=== PATIENT | female | born 1990 | race Hispanic/Latino ===

== ENCOUNTER 2023-12-03 11:38 | Emergency (ER) | payer SELFPAY ==
[2023-12-03 11:42] VITALS: BP 157/92
[2023-12-03] MEDS: DECADRON 10 MG PO (12:55)
[2023-12-03] MEDS: TORADOL 30 MG IM (12:55)
[2023-12-03] MEDS: PEN VK 500 MG PO (12:55)
[2023-12-03 13:58] LABS: HCG, Serum Qualitative Screen Negative
--- NOTE | 2023-12-03 14:05 | ED.GENMED ---
History of Present Illness
General
Chief Complaint: Throat Problem
Source: patient
Exam Limitations: none
Time Seen by Provider: 12/03/23 11:58
Nursing documentation reviewed up to this point in time: agreed with
Travel History
Have you had any contact with someone who has COVID-19?: No
Do you have any symptoms of coronavirus? Fever > 100 degrees, chills, cough, shortness of breath, sore throat, loss of taste or smell, muscle aches, or headache?: Yes
Symptoms:: fever
History of Present Illness
History of Present Illness:
33F otherwise healthy, presenting to the Er with concerns of throat pain for the past 24 hours. Also has had subjective fever and swollen lymph nodes on the lateral neck. She has had been tolerating by mouth/secretions and fluids. No cough.
Review of Systems
Review of Systems
Allergies reviewed?: Yes
All Other Systems: ROS reviewed and negative except as documented in HPI and ROS
Phy Exam
Physical Exam
Physical Exam:
GENERAL: Alert , in no apparent distress
EYE: pupils equal and reactive
NECK: Supple, no significant adenopathy.
ENT: o/p clr, mmm.
CARDIAC: Regular rate and rhythm .
LUNGS: Clear breath sounds bilaterally, no acute respiratory distress, no wheezes/rales/rhonchi
ABDOMEN: Soft, without focal tenderness, no r/g, no cvat
NEUROLOGICAL: Alert and oriented, no focal neuro deficits
SKIN: Warm and dry, skin intact.
MUSCULOSKELETAL: No edema, well perfused.
PSYCH: Normal and appropriate interaction.
Exudative tonsils bilaterally uvula midline grossly patent airway anterior cervical lymphadenopathy.
Course
Orders/Labs/Results
Orders:
Orders
12/03/23 12:36
Test Result ONCE
12/03/23 12:37
Dexamethasone [Decadron] 10 mg PO NOW STA
Ketorolac [Toradol] 30 mg IM NOW STA
Penicillin V Potassium [Pen Vk] 500 mg PO NOW STA
12/03/23 13:06
Test Result ONCE
12/03/23 13:10
HCG, Serum Qualitative Screen Urgent
Vital Signs
Initial and Last Documented VS:
Initial Vital Signs
Temp Pulse Resp BP Pulse Ox
98.3 F 118 18 157/92 99
12/03/23 11:42 12/03/23 11:42 12/03/23 11:42 12/03/23 11:42 12/03/23 11:42
Last Documented Vital Signs
Temp Pulse Resp BP Pulse Ox
98.3 F 118 18 157/92 99
12/03/23 11:42 12/03/23 11:42 12/03/23 11:42 12/03/23 11:42 12/03/23 11:42
MDM/Problems Addressed
MDM/Problems Addressed:
33-year-old female presenting to the emergency department today with concerns of sore throat. She has swollen exudative tonsils bilaterally grossly patent airway uvula midline. Patient in no distress tolerating secretions treated for likely strep
as she meets all [facility] criteria. Advised for outpatient follow-up return precautions given.
*Critical Care Note
Total Time (30-74mins, 75-104mins- exclusive of procedures): Not Applicable
ED Attending Note
-
Portions of this chart may have been created with voice recognition software.� Occasional wrong word or��sound alike� substitutions may have occurred due to the inherent limitations of voice recognition software.
Discharge Plan
Departure
Patient Disposition: Home (Routine Discharge)
Date of Disposition: 12/03/23
Time of Disposition: 14:05
Patient with high blood pressure during this ER visit?: No
Condition: Good
Covid-19: Not Applicable
Discharge Problem:
Strep throat
Instructions: Strep Throat (DC)
Prescriptions:
New
penicillin V potassium 500 mg tablet
500 mg PO TID 7 Days Qty: 21 0RF
ibuprofen 600 mg tablet
600 mg PO Q6H PRN (Reason: Pain) Qty: 20 0RF
Referrals:
NONE,* [Family Provider] -
Stand Alone Forms: Return to Work
Activity Restrictions/Additional Instructions:
You came to the emergency department today with concerns of sore throat. This appears consistent with strep throat. Please take penicillin 3 times daily for the next 7 days and also take ibuprofen for every 6 hours. Please stay hydrated return to
the emergency department for any worsening, new or concerning symptoms.
Interventions
Interventions:
*Risk Screen - Suicide Last Done: 12/03/23 11:43
*General Assessment Last Done: 12/03/23 11:43
*Neglect/Abuse Screening Last Done: 12/03/23 11:43
ED- Fall Risk Assessment Last Done: 12/03/23 13:24
*ED COVID-19 Vaccine History Last Done: 12/03/23 11:43
*Nursing Disposition Last Done: 12/03/23 14:27
ED-EENT Assessment Last Done: 12/03/23 13:23
ED- Pulmonary Assessment Last Done: 12/03/23 13:23
Discharge Date and Time
Discharge Date/Time: 12/03/23 14:28
Print Language: CITIZEN OF [place]
== END 2023-12-03 14:28 | disposition home or self-care (01) ==
LOC: EMR 11:38
PROVIDERS: Physician Assistant; EMERGENCY PHYSICIAN Emergency Medicine
DX: J02.0 Streptococcal pharyngitis (principal)
CPT/HCPCS: 99282; 96372; 84703

== ENCOUNTER 2024-02-26 15:04 | Emergency (ER) | payer OTHER, SELFPAY ==
[2024-02-26 15:32] VITALS: BP 110/79
[2024-02-26 16:54] VITALS: BP 112/67
--- NOTE | 2024-02-26 17:04 | ED.GENMED ---
History of Present Illness
General
Chief Complaint: Abdominal Symptoms
Source: patient
Exam Limitations: none
Time Seen by Provider: 02/26/24 16:24
Nursing documentation reviewed up to this point in time: agreed with
History of Present Illness
History of Present Illness:
Patient to ED with cmplaint of right sided abdominalpaiin. Pain started 8 days ago but was much worse this AM. Reports n/v/d. Denies fever/chills. Brought self to ED for eval.
Past History
Past History
ED Past Medical History: Other (polycystic ovaries)
ED Past Surgical History: None
Social History
Tobacco: Smoker (occasional)
Alcohol: Occasional
Drug: Marijuana (occasional)
Review of Systems
Review of Systems
Allergies reviewed?: Yes
All Other Systems: ROS reviewed and negative except as documented in HPI and ROS
Constitutional: Reports no symptoms
EENT: Reports no symptoms
Respiratory: Reports no symptoms
Cardiac: Reports no symptoms
ABD/GI: Reports abdominal pain (right sided)
: Reports no symptoms
Musculoskeletal: Reports no symptoms
Skin: Reports no symptoms
Neurological: Reports no symptoms
Psychiatric: Reports no symptoms
Phy Exam
General Physical Exam
General Presentation: well appearing
General age: appears stated age
General Skin: warm
General Habitus: normal
General Mental: alert
Cardiovascular Exam
Cardiovascular Exam: regular rate/rhythm and no edema
Pulmonary Exam
Pulmonary Exam: lungs clear and no respiratory distress
Gastrointestinal Exam
Gastrointestinal Exam: normal bowel sounds, soft, no organomegaly, non distended and no cva tenderness
Palpation: left upper quadrant: No tenderness, left lower quadrant: No tenderness, right upper quadrant: Moderate tenderness and right lower quadrant: Moderate tenderness
Musculoskeletal Exam
Musculoskeletal Exam: full ROM and neuro vasc intact
Skin Exam
Skin Exam: normal color, warm/dry and no rash
Psychiatric Exam
Psychiatric Exam: normal mood/affect
Course
Orders/Labs/Results
Orders:
Orders
02/26/24 15:33
Test Result ONCE
02/26/24 16:47
Complete Blood Count/With Diff Urgent
Comprehensive Metabolic Panel Urgent
HCG, Serum Qualitative Screen Urgent
Lipase Urgent
02/26/24 17:03
CT Abd/pel W Iv And Oral Contr Urgent
Comment:
Reason For Exam: RLQ pain
Iohexol [Omnipaque] See Protocol PO NOW STA
US Abdomen Complete/Upper Stat
Comment:
Reason For Exam: RUQ pain
02/26/24 17:40
0.9% Sodium Chloride 1000 ml [Nss] 1,000 ml IV BOLUS
Ketorolac [Toradol] 30 mg IV NOW STA
Ondansetron Injectable [Zofran] 4 mg IV NOW STA
02/26/24 19:31
Urinalysis Reflex To Culture Urgent
Date Specimen was Collected: 02/26/24
Time Specimen was Collected: 15:33
Urine Microscopic Reflex Cult Urgent
Urine Culture Urgent
LAILA Source: U
Specimen Description:
Date Specimen was Collected: 02/26/24
Time Specimen was Collected: 15:33
Abnormal Lab Results
02/26/24 02/26/24
16:47 19:31
RBC 5.54 H 10^6/uL
(4.20-5.40)
MCH 26.7 L pg
(27.0-31.0)
MCHC 32.9 L g/dL
(33.0-37.0)
Plt Count 401 H 10^3/uL
(130-400)
Creatinine 0.5 L mg/dL
(0.6-1.0)
Urine Ketones 3+ A
(Negative)
Ur Occult Blood Reflex Trace A
(Negative)
Leukocyte Esterase Rfl 1+ A
(Negative)
Urine RBC 3-6 A /HPF
(0-2)
Urine WBC (Reflex) 16-20 A /HPF
(0-5)
Urine Bacteria (Reflex) Few A
(Negative)
02/26/24 16:47
02/26/24 16:47
Vital Signs
Initial and Last Documented VS:
Initial Vital Signs
Temp Pulse Resp Pulse Ox
98.0 F 92 16 98
02/26/24 15:30 02/26/24 15:30 02/26/24 15:30 02/26/24 15:30
Last Documented Vital Signs
Temp Pulse Resp BP Pulse Ox
98.0 F 92 16 103/67 97
02/26/24 15:30 02/26/24 15:30 02/26/24 15:30 02/26/24 19:00 02/26/24 16:59
*Radiology
Radiology exam reviewed: radiology read reviewed
*Pulse Oximetry
Patient hypoxic: no
*Critical Care Note
Total Time (30-74mins, 75-104mins- exclusive of procedures): Not Applicable
ED Attending Note
-
Portions of this chart may have been created with voice recognition software.� Occasional wrong word or��sound alike� substitutions may have occurred due to the inherent limitations of voice recognition software.
Discharge Plan
Departure
Patient Disposition: Home (Routine Discharge)
Date of Disposition: 02/26/24
Time of Disposition: 20:52
Patient with high blood pressure during this ER visit?: No
Condition: Good
Covid-19: Not Applicable
Discharge Problem:
Abdominal pain
Instructions: Abdominal Pain
Prescriptions:
New
dicyclomine 20 mg tablet
20 mg PO QID PRN (Reason: abdominal cramping) Qty: 20 0RF
No Action
penicillin V potassium 500 mg tablet
500 mg PO TID 7 Days Qty: 21 0RF
ibuprofen 600 mg tablet
600 mg PO Q6H PRN (Reason: Pain) Qty: 20 0RF
Referrals:
Sruthi Hernandez MD [Active] - Call in 1-3 days for appt
NONE,* [Family Provider] -
Interventions
Interventions:
*Risk Screen - Suicide Last Done: 02/26/24 18:58
*General Assessment Last Done: 02/26/24 18:58
*Neglect/Abuse Screening Last Done: 02/26/24 18:58
*Nursing Disposition Last Done: 02/26/24 21:34
VE-Kdmqjy-Pkegqxdlou Assessment Last Done: 02/26/24 18:58
Discharge Date and Time
Discharge Date/Time: 02/26/24 21:43
Print Language: KHMER
[2024-02-26 17:05] LABS: % Basophils 0.5 % (0-2); % Eosinophils 1.9 % (0-6); % Immature Granulocytes 0.2 % (0-0.5); % Lymphocytes 27.8 % (20.5-51.1); % Monocytes 5.7 % (1.7-9.3); % Neutrophils 63.9 % (42.2-75.2); Absolute Basophils 0.1 10^3/uL (0-0.2); Absolute Eosinophils 0.2 10^3/uL (0-0.7); Absolute Lymphocytes 2.7 10^3/uL (1.2-3.4); Absolute Monocytes 0.6 10^3/uL (0.1-0.6); Absolute Neutrophils 6.2 10^3/uL (1.4-6.5); Hemoglobin 14.8 g/dL (12.0-16.0); Mean Corp Hgb Conc. 32.9 g/dL (33.0-37.0); Mean Corpuscular Hgb 26.7 pg (27.0-31.0); Mean Corpuscular Volume 81.2 fL (81.0-99.0); Mean Platelet Volume 9.2 fL (7.4-10.4); Nucleated Red Blood Cells % 0 %; Platelet Count 401 10^3/uL (130-400); Red Blood Cell Count 5.54 10^6/uL (4.20-5.40); Red Cell Dist. Width 14.1 % (11.5-14.5); White Blood Cell Count 9.6 10^3/uL (4.8-10.8)
[2024-02-26 17:22] LABS: HCG, Serum Qualitative Screen Negative
[2024-02-26 17:25] LABS: ALT (SGPT) 19 U/L (0-35); AST (SGOT) 25 U/L (14-36); Albumin 4.7 g/dl (3.5-5.0); Alkaline Phosphatase 74 U/L (38-126); Blood Urea Nitrogen 11 mg/dl (7-17); Calcium 9.7 mg/dl (8.4-10.2); Carbon Dioxide 27 mmol/L (22-30); Chloride 104 mmol/L (98-107); Glucose 82 mg/dl (70-99); Lipase 73 U/L (23-300); Sodium 140 mmol/L (135-145); Total Bilirubin 0.9 mg/dl (0.2-1.3); Total Protein 7.5 g/dl (6.3-8.2); eGFR > 60.00
[2024-02-26] MEDS: OMNIPAQUE 50 ML PO (17:33)
[2024-02-26 18:13] VITALS: BP 121/79
[2024-02-26] MEDS: NSS 1000 IV (18:13)
[2024-02-26] MEDS: ZOFRAN 4 MG IV (18:13)
[2024-02-26] MEDS: TORADOL 30 MG IV (18:13)
[2024-02-26 19:00] VITALS: BP 103/67
[2024-02-26 19:43] LABS: Urine Albumin Negative (Neg - Trace); Urine Bilirubin Negative (Negative); Urine Character Slightly Cloudy (Clear); Urine Color Yellow; Urine Glucose Negative (Negative); Urine Ketone 3+ (Negative); Urine Leukocyte 1+ (Negative); Urine Nitrite Negative (Negative); Urine Occult Blood Trace (Negative); Urine Urobilinogen Negative (Neg - 1+)
[2024-02-26 19:57] LABS: Urine Bacteria Few (Negative); Urine Squamous Cell >30 /LPF (Few); Urine Urothelial Cell 0-2 /LPF (FEW); Urine White Cell 16-20 /HPF (0-5)
== END 2024-02-26 21:43 | disposition home or self-care (01) ==
LOC: EMR 15:04
PROVIDERS: EMERGENCY PHYSICIAN Emergency Medicine
DX: R10.9 Unspecified abdominal pain (principal); E28.2 Polycystic ovarian syndrome; F17.200 Nicotine dependence, unspecified, uncomplicated
CPT/HCPCS: 99284; 96374; 96375; 96361; 74177; 76700; 80053; 81003; 81015; 83690; 84703; 85025; 87086; Q9967

== ENCOUNTER 2024-03-25 08:46 | Emergency (ER) | payer OTHER, SELFPAY ==
[2024-03-25 09:01] VITALS: BP 123/89
[2024-03-25 10:00] VITALS: BP 121/77
[2024-03-25] MEDS: NSS 1000 IV (10:34)
[2024-03-25] MEDS: ZOFRAN 4 MG IV (10:36)
[2024-03-25] MEDS: PROTONIX IV 40 MG IV (10:36)
[2024-03-25 10:48] LABS: % Basophils 0.4 % (0-2); % Eosinophils 1.7 % (0-6); % Immature Granulocytes 0.2 % (0-0.5); % Lymphocytes 19.3 % (20.5-51.1); % Monocytes 5.4 % (1.7-9.3); Absolute Eosinophils 0.2 10^3/uL (0-0.7); Absolute Lymphocytes 1.8 10^3/uL (1.2-3.4); Absolute Monocytes 0.5 10^3/uL (0.1-0.6); Absolute Neutrophils 6.8 10^3/uL (1.4-6.5); Hematocrit 40.1 % (37.0-47.0); Hemoglobin 13.1 g/dL (12.0-16.0); Mean Corp Hgb Conc. 32.7 g/dL (33.0-37.0); Mean Corpuscular Hgb 26.2 pg (27.0-31.0); Mean Corpuscular Volume 80.2 fL (81.0-99.0); Mean Platelet Volume 9.3 fL (7.4-10.4); Nucleated Red Blood Cells % 0 %; Platelet Count 359 10^3/uL (130-400); Red Cell Dist. Width 14.1 % (11.5-14.5); White Blood Cell Count 9.3 10^3/uL (4.8-10.8)
[2024-03-25 11:11] LABS: ALT (SGPT) 20 U/L (0-35); AST (SGOT) 23 U/L (14-36); Albumin 4.4 g/dl (3.5-5.0); Alkaline Phosphatase 72 U/L (38-126); Blood Urea Nitrogen 12 mg/dl (7-17); Calcium 9.5 mg/dl (8.4-10.2); Carbon Dioxide 27 mmol/L (22-30); Chloride 106 mmol/L (98-107); Glucose 103 mg/dl (70-99); Lipase 48 U/L (23-300); Potassium 4.3 mmol/L (3.5-5.1); Sodium 139 mmol/L (135-145); Total Bilirubin 0.7 mg/dl (0.2-1.3); eGFR > 60.00
[2024-03-25 11:19] LABS: HCG, Serum Qualitative Screen Negative
--- NOTE | 2024-03-25 13:07 | ED.GENMED ---
History of Present Illness
General
Chief Complaint: Abdominal Symptoms
Source: patient
Exam Limitations: none
Time Seen by Provider: 03/25/24 09:23
Nursing documentation reviewed up to this point in time: agreed with
History of Present Illness
History of Present Illness:
yuly joe 33 y/o F h/ oPCOS
was here 1 mo ago for n/v/d abd pain, ct showed mild wall thickening of the terminal ileum; she was put on bentyl and sent home; has had pain in her abdomen daily for the last month, no treally eating well and then the past 3 days has had inc pain
in the epigastric region with n/v/d. says the first day she vomited all day. since, she really hasn't had appetie and hasn't been able to eat without vomiting or having watery stool
she has not had fever, chills, vomiting blood, no black stool
has appt with GI upcoming in2 weeks
she is here becuase the symptoms got worse int he past 3 days
no h/o gastritis or PUD.
nonsmokking
no alcohol
Past History
Past History
ED Past Medical History: Other (polycystic ovaries)
ED Past Surgical History: None
Social History
Tobacco: Smoker (occasional)
Alcohol: Occasional
Drug: Marijuana (occasional)
Review of Systems
Review of Systems
Allergies reviewed?: Yes
All Other Systems: Not applicable
Phy Exam
Physical Exam
Physical Exam:
GENERAL: Alert , uncomfortable
EYE: pupils equal and reactive
NECK: Supple
ENT: o/p clr, mmm.
CARDIAC: Regular rate and rhythm .
LUNGS: Clear breath sounds bilaterally, no acute respiratory distress, no wheezes/rales/rhonchi
ABDOMEN: Soft, moderate epigastric tenderness, neg muprhy's sign, no r/g, no cvat, normal bowel sounds
heme neg brown stool
NEUROLOGICAL: Alert and oriented, no focal neuro deficits
SKIN: Warm and dry, skin intact.
MUSCULOSKELETAL: No edema, well perfused. neg krishna's sign
PSYCH: Normal and appropriate interaction.
Course
Orders/Labs/Results
Orders:
Orders
03/25/24 10:17
0.9% Sodium Chloride 1000 ml [Nss] 1,000 ml IV BOLUS
Ondansetron Injectable [Zofran] 4 mg IV NOW STA
Pantoprazole [Protonix IV] 40 mg IV NOW STA
03/25/24 10:18
Test Result ONCE
03/25/24 10:37
C-Reactive Protein Urgent
Comment: CRP ADDED ON BY DANNI 2:20PM 03-25-24
Complete Blood Count/With Diff Urgent
Comprehensive Metabolic Panel Urgent
HCG, Serum Qualitative Screen Urgent
Lipase Urgent
03/25/24 11:23
CT Abd/Pel (IV only)-DH only Urgent
Comment:
Reason For Exam: epigastric pain x 1 mo, n/v/d x 3 days
03/25/24 13:35
Lactic Acid Urgent
03/25/24 14:21
Add On- LAB Urgent
Tests Added?: crp
Abnormal Lab Results
03/25/24 03/25/24
10:37 13:35
MCV 80.2 L fL
(81.0-99.0)
MCH 26.2 L pg
(27.0-31.0)
MCHC 32.7 L g/dL
(33.0-37.0)
Absolute Neuts (auto) 6.8 H 10^3/uL
(1.4-6.5)
Lymphocytes % 19.3 L %
(20.5-51.1)
Glucose 103 H mg/dl
(70-99)
Lactic Acid 0.6 L mmol/L
(0.7-2.0)
C-Reactive Protein 24.70 H mg/L
(0.0-10.00)
03/25/24 10:37
03/25/24 10:37
Vital Signs
Initial and Last Documented VS:
Initial Vital Signs
Temp Pulse Resp BP Pulse Ox
98.3 F 80 18 123/89 99
03/25/24 09:01 03/25/24 09:01 03/25/24 09:01 03/25/24 09:01 03/25/24 09:01
Last Documented Vital Signs
Temp Pulse Resp BP Pulse Ox
98.3 F 59 18 120/72 99
03/25/24 09:01 03/25/24 14:55 03/25/24 14:55 03/25/24 14:55 03/25/24 14:55
MDM/Problems Addressed
MDM/Problems Addressed:
33 y/o F h/ oPCOS
was here 1 mo ago for n/v/d abd pain, ct showed mild wall thickening of the terminal ileum; she was put on bentyl and sent home; has had pain in her abdomen daily for the last month, no treally eating well and then the past 3 days has had inc pain
in the epigastric region with n/v/d - she initially was pretty uncomfortable with moderate epigastric tenderness; but vitals and labs normal and her CT shows mesenteric inflammatory stranding with subcentimeter lypmh nodes in RLQ suggestive of
inflammatory process; she has appt with GI 04/12
initially was going to admit her
but pt feels much better after protnonix and was able to drink and eat here without pain
d/w GI who felt that pt can f/u outpatinet as planned with colonoscopy but she asked me to order CRP
no diarrhea episodes here
protonix 20 mg daily
*Critical Care Note
Total Time (30-74mins, 75-104mins- exclusive of procedures): Not Applicable
ED Attending Note
-
Portions of this chart may have been created with voice recognition software.� Occasional wrong word or��sound alike� substitutions may have occurred due to the inherent limitations of voice recognition software.
Discharge Plan
Departure
Patient Disposition: Home (Routine Discharge)
Date of Disposition: 03/25/24
Time of Disposition: 13:20
Patient with high blood pressure during this ER visit?: No
Condition: Fair
Covid-19: Not Applicable
Discharge Problem:
Abdominal pain, Lymphadenopathy, mesenteric
Prescriptions:
New
pantoprazole [Protonix] 20 mg tablet,delayed release (DR/EC)
20 mg PO DAILY Qty: 20 0RF
No Action
penicillin V potassium 500 mg tablet
500 mg PO TID 7 Days Qty: 21 0RF
ibuprofen 600 mg tablet
600 mg PO Q6H PRN (Reason: Pain) Qty: 20 0RF
dicyclomine 20 mg tablet
20 mg PO QID PRN (Reason: abdominal cramping) Qty: 20 0RF
Referrals:
NONE,* [Family Provider] -
Libby Benson MD [Active] - Follow up in 5-7 days
Activity Restrictions/Additional Instructions:
your cat scan shows some inflammation - you will need to see the GI doctor as planned. you may need an endoscopy and colonoscopy.
in the meantime, take protonix 20 mg once a day in the morning on an empty stomach. wait 1 hour befor eating. make sure your diet is bland.
return for: severe pain, fever, vomiting blood, black stool or any concerns.
aquino exploraci�n sridevi muestra algo de inflamaci�n; deber� consultar al augustina gastrointestinal seg�n lo planeado. es posible que necesite michelle endoscopia y michelle colonoscopia.
Mientras tanto, tome Protonix 20 mg michelle vez al d�a por la ma�radha con el est�julianne vac�o. Espere 1 hora antes de comer. Aseg�rate de que tu dieta sea blanda.
Regrese por: dolor intenso, fiebre, v�mitos con vishal, heces negras o cualquier inquietud.
Interventions
Interventions:
*Risk Screen - Suicide Last Done: 03/25/24 09:01
*General Assessment Last Done: 03/25/24 11:33
*Neglect/Abuse Screening Last Done: 03/25/24 09:01
ED- Fall Risk Assessment Last Done: 03/25/24 11:33
*ED COVID-19 Vaccine History Last Done: 03/25/24 09:01
*Nursing Disposition Last Done: 03/25/24 14:56
JK-Fflnwa-Aqyeadlvrn Assessment Last Done: 03/25/24 11:33
Discharge Date and Time
Discharge Date/Time: 03/25/24 14:56
Print Language: [place]
[2024-03-25 13:56] LABS: Lactic Acid 0.6 mmol/L (0.7-2.0)
[2024-03-25 14:55] VITALS: BP 120/72
== END 2024-03-25 14:56 | disposition home or self-care (01) ==
LOC: EMR 08:46
PROVIDERS: Physician Assistant; EMERGENCY PHYSICIAN Emergency Medicine
DX: R10.9 Unspecified abdominal pain (principal); R59.0 Localized enlarged lymph nodes; F17.200 Nicotine dependence, unspecified, uncomplicated
CPT/HCPCS: 99285; 96374; 96375; 96361; 74177; 80053; 83605; 83690; 84703; 85025; 86140; Q9967

== ENCOUNTER → 2024-04-14 15:24 | Outpatient (REF) | payer OTHER, SELFPAY ==
[2024-04-14 16:56] LABS: Erythrocyte Sed Rate 17 mm/hour (0-20)
[2024-04-14 17:20] LABS: TSH Reflex To Free T4 2.51 uIU/ml (0.47-4.68)
== END ==
LOC: REG 15:24
PROVIDERS: ATTENDING PHYSICIAN Physician Assistant
DX: R63.4 Abnormal weight loss (principal)
CPT/HCPCS: 36415; 84443; 85652; 86140

== ENCOUNTER → 2024-04-15 07:07 | Outpatient (REF) | payer OTHER, SELFPAY ==
[2024-04-18 01:40] LABS: Calprotectin, Fecal 219 ug/g (<=49)
== END ==
LOC: CLINIC 07:07
PROVIDERS: ATTENDING PHYSICIAN Physician Assistant
DX: R63.4 Abnormal weight loss (principal); R10.13 Epigastric pain
CPT/HCPCS: 83993

== ENCOUNTER → 2024-04-20 06:22 | Day surgery (SDC) | payer OTHER, SELFPAY | LOC: GI 06:22 | PROVIDERS: ATTENDING PHYSICIAN Internal Medicine Gastroenterology | DX: K52.9 Noninfective gastroenteritis and colitis, unspecified (principal); K63.3 Ulcer of intestine; K64.8 Other hemorrhoids; R93.3 Abnormal findings on diagnostic imaging of other parts of digestive tract; K29.50 Unspecified chronic gastritis without bleeding; K31.89 Other diseases of stomach and duodenum; R11.0 Nausea | CPT/HCPCS: 45380; 43239; 88305; 88342 ==